=== PATIENT | male | born 2000 | race Caucasian/White ===

== ENCOUNTER 2023-07-01 10:37 | Observation (INO) ==
--- NOTE | 2023-07-01 11:43 | Emergency Department Note ---
History of Present Illness General Chief complaint: Referred by Doctor Stated complaint: Jaundice Time Seen by Provider: 07/01/23 11:03 Source: patient and family (Mother at bedside) History of Present Illness Provider complaint: Jaundice Maximum Pain Intensity: 3 23-year-old male presents emergency department for jaundice. Mother reports that for the last 2 days she noticed that the patient's eyes look more yellow. He reports pain in his abdomen. Patient mother reports they went to an outside hospital, [facility], where they did blood work. They have paperwork from his blood work which shows a total bilirubin of 6.4 and a direct bilirubin of 0.3 with liver function tests were unremarkable according to the paperwork (No direct values of the liver function tests were listed). Patient reports no recent travel. No nausea vomiting or diarrhea. No IV drug use. Patient does state he has a history of binge drinking on the weekends with friends. Patient reports no different foods or eating any restaurants. No hematuria. No excessive Tylenol or salicylate usage. Reports that the doctor at [facility] wanted him to be transferred to [facility] to have an ultrasound of his abdomen done but they decided to leave [place] and come here instead. Home Medications Medication Instructions Recorded Confirmed Type dextroamphetamine-amphetamine 10 10 mg PO .AFTERNOON PRN Other 07/01/23 07/01/23 History mg tablet dextroamphetamine-amphetamine 20 20 mg PO QAM 07/01/23 07/01/23 History mg tablet Allergies Allergy/AdvReac Type Severity Reaction Status Date / Time Penicillins Allergy Mild Unknown Unverified 06/08/22 13:29 amoxicillin AdvReac Unknown Unverified 06/08/22 13:29 Past Med/Surg History Problem List (Updated 07/01/23 @ 14:31 by Geovanny Tejeda MD) Jaundice (Acute) Panic attacks Anxiety and depression Sinusitis, acute Well adolescent visit without abnormal findings ADHD (attention deficit hyperactivity disorder), inattentive type Medical History Male circumcision No significant past medical history Surgical History No pertinent past surgical history Family History Grandfather (Paternal) Hypertension Aunt Breast cancer Grandmother (Maternal) Myocardial infarction Grandfather (Paternal) Myocardial infarction Denies family history of Ovarian cancer Prostate cancer Colorectal cancer Social History Smoking Status: Current some day smoker Tobacco Type: E-cigarettes / Vaping Second Hand Exposure: No; Do You Dip or Chew Tobacco: No; Hx Alcohol Use: Yes Alcohol Intake Frequency: Monthly or Less Hx Substance Use: Yes Preferred Language: Vietnamese marital status: Single Current Living Situation: Parent current occupational status: employed Feels Safe at Home: Yes caffeine: Yes (soda and coffee ) Dental Care, Regularly: No Physical Activity Frequency: Does not Exercise Seatbelt Use: sometimes Sunscreen Use: No Physical Exam Vital Signs Vital Signs - 24 hr 07/01/23 10:51 07/01/23 11:34 07/01/23 11:35 Temperature 36.8 C Temperature Source Temporal Artery Scan Pulse Rate 71 62 Respiratory Rate 14 Blood Pressure 153/96 H Blood Pressure Mean 115 Pulse Oximetry 98 99 Oxygen Delivery Method Room Air Room Air Sepsis New/Unexplained Change in Mental Status No Sepsis Action Taken by Nursing No Action Required Physical Exam GENERAL: He is oriented to person, place, and time. He appears well-developed and well-nourished. He does not appear distressed. HENT: Exam performed. - Head: Normocephalic and atraumatic. - Right Ear: External ear normal. No mastoid erythema - Left Ear: External ear normal. No mastoid erythema - Mouth/Throat: The oropharynx is clear and moist. No trismus in the jaw. No dental abscesses or uvula swelling. No oropharyngeal exudate or tonsillar abscesses. EYES: Conjunctivae and EOM are normal. Pupils are equal, round, and reactive to light. Right eye exhibits no discharge. Left eye exhibits no discharge. Scleral icterus bilaterally NECK: Normal range of motion. Neck supple. No JVD present. No spinous process tenderness present. No rigidity. No tracheal deviation and normal range of motion present. CV: Normal rate, regular rhythm, normal heart sounds and intact distal pulses. There is no peripheral edema. Palpable radial pulses bue. PULM/CHEST: Effort normal and breath sounds normal. No respiratory distress. No stridor. He has no wheezes. He has no rales. - Chest Wall: He exhibits no tenderness. ABD: The abdomen is soft. Bowel sounds are normal. He has no distension. No mass is present. There is no tenderness. There is no rebound, no guarding, no Callaway's sign and no tenderness at McBurney's point. Rovsig negative. MUSC/SKEL: Normal range of motion. There is no peripheral edema, tenderness or deformity. LYMPH: No cervical adenopathy. NEURO: He is alert and oriented to person, place, and time. He has normal strength. No cranial nerve deficit or sensory deficit. Coordination and gait normal. GCS eye subscore is 4. GCS verbal subscore is 5. GCS motor subscore is 6. Cerebellar tests wnl. SKIN: Skin is warm and dry. He is not diaphoretic. PSYCH: He has a normal mood and affect. Behavior is normal. Judgment and thought content normal. Course Course 1103: The patient was evaluated in room C2. A complete history and physical exam was performed Cardiac monitoring: An order was placed for continuous cardiac monitoring. The monitor shows a rate of 70 with sinus rhythm interpreted by sc 1350: Vital signs stable. Labs within normal limits with exception of total bilirubin 5.2 and direct bilirubin 0.4. EKG shows pericarditis BioFire negative. Hepatitis panel pending. Discussed case with [facility] hospitalist Dr. Meyer who states he will evaluate the patient for admission. Administered Medications Discontinued Medications Sodium Chloride (Nss) 1,000 mls @ 999 mls/hr IV .Q1H1M ONE Stop: 07/01/23 12:35 Last Infusion: 07/01/23 13:38 Dose: Infused Documented By: Admin: 07/01/23 12:37 Dose: 999 mls/hr Documented By: Medical Decision Making Laboratory Data Attestation: I reviewed the patient's lab results. 07/01/23 11:20 07/01/23 11:20 Lab Results 07/01/23 07/01/23 07/01/23 Range/Units 11:20 11:23 11:30 WBC 8.82 (4.8-10.8) K/ul RBC 5.15 (4.70-6.10) M/uL Hgb 15.4 (14.0-18.0) g/dl Hct 43.3 (42.0-52.0) % MCV 84.1 (80.0-100.0) fL MCH 29.9 (25.0-34.0) pg MCHC 35.6 (32.0-36.0) g/dL RDW Std Deviation 37.8 (36.4-46.3) fL RDW Coeff of Manny 12.4 (11.5-14.5) % Plt Count 339 (130-400) K/uL MPV 9.1 L (9.4-12.4) fL Immature Gran % (Auto) 0.3 % Neut % (Auto) 64.0 % Lymph % (Auto) 21.3 % Glynn % (Auto) 12.4 % Eos % (Auto) 1.0 % Baso % (Auto) 1.0 % Neut # (Auto) 5.64 (1.40-6.50) K/uL Lymph # (Auto) 1.88 (1.20-3.40) K/uL Glynn # (Auto) 1.09 H (0.11-0.59) K/uL Eos # (Auto) 0.09 (0.00-0.50) K/uL Baso # (Auto) 0.09 (0.00-0.20) K/uL Immature Gran # (Auto) 0.03 (0.01-0.20) K/uL PT 12.0 (9.0-12.0) Seconds INR 1.1 (0.9-1.1) APTT 28 (21-31) Seconds PTT Ratio 1.0 Sodium 138 (136-145) mmol/L Potassium 3.4 L (3.5-5.1) mmol/L Chloride 102 (98-107) mmol/L Carbon Dioxide 27 (21-32) mmol/L Anion Gap 9 (3-11) BUN 9 (6-23) mg/dl Creatinine 1.00 (0.6-1.4) mg/dl Est Cr Clr Drug Dosing 98.5 ml/min Est GFR ( Amer) 122.4 ml/min Est GFR (Non-Af Amer) 105.6 ml/min BUN/Creatinine Ratio 9.0 L (10-20) Glucose 92 (70-99(Fasting)) mg/dl Calcium 9.7 (8.6-10.3) mg/dl Total Bilirubin 5.2 H (0.2-1.0) mg/dl Direct Bilirubin 0.4 H (0-0.2) mg/dl AST 15 (13-39) U/L ALT 11 (7-52) U/L Alkaline Phosphatase 37 (34-104) U/L Ammonia 28.0 (18-72) umol/L Troponin I High Sens (0-20) pg/ml Total Protein 7.4 (6.0-8.3) gm/dl Albumin 4.9 (3.4-5.0) gm/dl Lipase 14 (11-82) U/L Urine Color [place] Urine Appearance Cloudy A (Clear) Urine pH 5.5 (4.5-7.5) Ur Specific [place] 1.034 H (1.000-1.030) Urine Protein 1+ H (Negative) Urine Glucose (UA) Negative (Negative) Urine Ketones 2+ H (Negative) Urine Blood Negative (Negative) Urine Nitrite Positive A (Negative) Urine Bilirubin 2+ H (Negative) Urine Urobilinogen Negative (Negative) Ur Leukocyte Esterase Trace H (Negative) Urine WBC (Auto) 0-5 (0-5) /hpf Urine RBC (Auto) 0-2 (0-2) /hpf U Hyaline Cast (Auto) 3-5 H (0-2) /lpf U Epithel Cells (Auto) 0-2 (0-2) /hpf Urine Bacteria (Auto) None Seen (None Seen) Urine Mucus Present A (None Prsent) Salicylates < 3.0 L (3.0-30) mg/dl Urine Opiates Screen Neg (Neg) Ur Methadone, Qual Neg (Neg) Acetaminophen < 3 L (10-30) ug/ml Urine Barbiturates Neg (Neg) Ur Phencyclidine (PCP) Neg (Neg) U Amphetamin/Meth Scrn Pos H (Neg) MDMA (Ecstasy) Screen Pos H (Neg) U Benzodiazepines Scrn Pos H (Neg) Ur Cocaine Metabolite Neg (Neg) U Marijuana (THC) Screen Neg (Neg) Ethyl Alcohol mg/dL (<10.0) mg/dl Adenovirus (PCR) (NotDetected) B. pertussis DNA (PCR) (NotDetected) B.parapertussis DNA PCR (NotDetected) C. pneumoniae DNA (PCR) (NotDetected) Coronavirus OC43 (PCR) (NotDetected) Coronavirus HKU1 (PCR) (NotDetected) Coronavirus 229E (PCR) (NotDetected) SARS-CoV-2 (PCR) (NotDetected) Coronavirus NL63 (PCR) (NotDetected) Human Metapneumovir PCR (NotDetected) Influenza Type A (PCR) (NotDetected) Influenza Type B (PCR) (NotDetected) M. pneumoniae (PCR) (NotDetected) Parainfluenza 1 (PCR) (NotDetected) Parainfluenza 2 (PCR) (NotDetected) Parainfluenza 3 (PCR) (NotDetected) Parainfluenza 4 (PCR) (NotDetected) RSV (PCR) (NotDetected) Entero/Rhino (PCR) (NotDetected) 07/01/23 07/01/23 Range/Units 12:13 12:35 WBC (4.8-10.8) K/ul RBC (4.70-6.10) M/uL Hgb (14.0-18.0) g/dl Hct (42.0-52.0) % MCV (80.0-100.0) fL MCH (25.0-34.0) pg MCHC (32.0-36.0) g/dL RDW Std Deviation (36.4-46.3) fL RDW Coeff of Manny (11.5-14.5) % Plt Count (130-400) K/uL MPV (9.4-12.4) fL Immature Gran % (Auto) % Neut % (Auto) % Lymph % (Auto) % Glynn % (Auto) % Eos % (Auto) % Baso % (Auto) % Neut # (Auto) (1.40-6.50) K/uL Lymph # (Auto) (1.20-3.40) K/uL Glynn # (Auto) (0.11-0.59) K/uL Eos # (Auto) (0.00-0.50) K/uL Baso # (Auto) (0.00-0.20) K/uL Immature Gran # (Auto) (0.01-0.20) K/uL PT (9.0-12.0) Seconds INR (0.9-1.1) APTT (21-31) Seconds PTT Ratio Sodium (136-145) mmol/L Potassium (3.5-5.1) mmol/L Chloride (98-107) mmol/L Carbon Dioxide (21-32) mmol/L Anion Gap (3-11) BUN (6-23) mg/dl Creatinine (0.6-1.4) mg/dl Est Cr Clr Drug Dosing ml/min Est GFR ( Amer) ml/min Est GFR (Non-Af Amer) ml/min BUN/Creatinine Ratio (10-20) Glucose (70-99(Fasting)) mg/dl Calcium (8.6-10.3) mg/dl Total Bilirubin (0.2-1.0) mg/dl Direct Bilirubin (0-0.2) mg/dl AST (13-39) U/L ALT (7-52) U/L Alkaline Phosphatase (34-104) U/L Ammonia (18-72) umol/L Troponin I High Sens 5.4 (0-20) pg/ml Total Protein (6.0-8.3) gm/dl Albumin (3.4-5.0) gm/dl Lipase (11-82) U/L Urine Color Urine Appearance (Clear) Urine pH (4.5-7.5) Ur Specific [place] (1.000-1.030) Urine Protein (Negative) Urine Glucose (UA) (Negative) Urine Ketones (Negative) Urine Blood (Negative) Urine Nitrite (Negative) Urine Bilirubin (Negative) Urine Urobilinogen (Negative) Ur Leukocyte Esterase (Negative) Urine WBC (Auto) (0-5) /hpf Urine RBC (Auto) (0-2) /hpf U Hyaline Cast (Auto) (0-2) /lpf U Epithel Cells (Auto) (0-2) /hpf Urine Bacteria (Auto) (None Seen) Urine Mucus (None Prsent) Salicylates (3.0-30) mg/dl Urine Opiates Screen (Neg) Ur Methadone, Qual (Neg) Acetaminophen (10-30) ug/ml Urine Barbiturates (Neg) Ur Phencyclidine (PCP) (Neg) U Amphetamin/Meth Scrn (Neg) MDMA (Ecstasy) Screen (Neg) U Benzodiazepines Scrn (Neg) Ur Cocaine Metabolite (Neg) U Marijuana (THC) Screen (Neg) Ethyl Alcohol mg/dL < 10.0 (<10.0) mg/dl Adenovirus (PCR) Not Detected (NotDetected) B. pertussis DNA (PCR) Not Detected (NotDetected) B.parapertussis DNA PCR Not Detected (NotDetected) C. pneumoniae DNA (PCR) Not Detected (NotDetected) Coronavirus OC43 (PCR) Not Detected (NotDetected) Coronavirus HKU1 (PCR) Not Detected (NotDetected) Coronavirus 229E (PCR) Not Detected (NotDetected) SARS-CoV-2 (PCR) Not Detected (NotDetected) Coronavirus NL63 (PCR) Not Detected (NotDetected) Human Metapneumovir PCR Not Detected (NotDetected) Influenza Type A (PCR) Not Detected (NotDetected) Influenza Type B (PCR) Not Detected (NotDetected) M. pneumoniae (PCR) Not Detected (NotDetected) Parainfluenza 1 (PCR) Not Detected (NotDetected) Parainfluenza 2 (PCR) Not Detected (NotDetected) Parainfluenza 3 (PCR) Not Detected (NotDetected) Parainfluenza 4 (PCR) Not Detected (NotDetected) RSV (PCR) Not Detected (NotDetected) Entero/Rhino (PCR) Not Detected (NotDetected) Imaging Data Attestation: I personally reviewed and interpreted this imaging study as follows: My Impression: Acute abdominal series: Chest x-ray negative. Airway clear. No pneumothorax. No consolidation. No cardiomegaly or cephalization.. No free air under the diaphragm. No fractures of the skeletal structures. No air-fluid levels nonspecific bowel gas pattern. Radiologist's Impression: Chest/Abdomen X-ray 07/01/23 11:13 XR abdomen 2V w PA chest CLINICAL HISTORY: epigastric pain TECHNIQUE: 2 views of the abdomen were obtained. A single view of the chest was obtained. Comparison: Comparison is made to chest radiograph 01/08/2018 FINDINGS: No lines and tubes are seen. The cardiomediastinal silhouette is normal. The lungs are clear. No evidence of pleural effusion or pneumothorax. The osseous structures are grossly unremarkable. The bowel gas pattern is nonobstructive. Small stool burden is seen. IMPRESSION: Nonobstructive bowel gas pattern. ACT 112: Negative or not required by law. Electronically signed by: Nick Ramachandran M.D. 07/01/2023 12:49 PM Gallbladder Ultrasound 07/01/23 11:13 ABDOMINAL ULTRASOUND, RIGHT UPPER QUADRANT HISTORY: Acute right upper quadrant abdominal pain jaundice epigastric pain. COMPARISON: CT 02/15/2011 FINDINGS: Pancreas: The pancreas is mostly obscured by bowel gas. Liver: Unremarkable. Gallbladder: No gallbladder wall thickening. No gallstones. CBD: 0.3 cm. Right kidney: No hydronephrosis. IMPRESSION: No significant abnormality identified within the right upper quadrant. ACT 112: Negative or not required by law. Electronically signed by: Patrick An M.D. 07/01/2023 12:29 PM ECG Data Attestation: I personally reviewed and interpreted this ECG as follows: Additional Comments: Sinus rhythm with a rate of 69. SD QRS and QTc intervals are within normal limits. SD depression with concave ST elevation no convex ST elevation. Findings are consistent with pericarditis. No STEMI. [facility] Narrative 1103: The patient was evaluated in room C2. A complete history and physical exam was performed Cardiac monitoring: An order was placed for continuous cardiac monitoring. The monitor shows a rate of 70 with sinus rhythm interpreted by me 1350: Vital signs stable. Labs within normal limits with exception of total bilirubin 5.2 and direct bilirubin 0.4. EKG shows pericarditis BioFire negative. Hepatitis panel pending. Discussed case with [facility] hospitalist Dr. Meyer who states he will evaluate the patient for admission. Impression & Plan Jaundice Discharge Plan Visit Data Chief Complaint: Referred by Doctor Stated Complaint: Jaundice ED Provider: Geovanny Tejeda Discharge Problem: Jaundice Patient Disposition: Admitted As Inpatient Forms Stand Alone Forms: My [facility] Prescriptions Prescriptions: No Action dextroamphetamine-amphetamine 10 mg tablet 10 mg PO .AFTERNOON PRN (Reason: Other) dextroamphetamine-amphetamine 20 mg tablet 20 mg PO QAM Referrals Referrals: Torito Rockwell DO [Primary Care Provider] -
[2023-07-01 11:45] LABS: Basophils # (auto) 0.09 K/uL (0.00-0.20); Eosinophils # (auto) 0.09 K/uL (0.00-0.50); Hematocrit (blood only) 43.3 % (42.0-52.0); Hemoglobin 15.4 g/dl (14.0-18.0); Immature Granulocytes # (auto) 0.03 K/uL (0.01-0.20); Immature Granulocytes % (auto) 0.3 %; Lymphocytes # (auto) 1.88 K/uL (1.20-3.40); Lymphocytes % (auto) 21.3 %; Mean Corpuscular Hemoglobin 29.9 pg (25.0-34.0); Mean Corpuscular Hgb Conc 35.6 g/dL (32.0-36.0); Mean Corpuscular Volume 84.1 fL (80.0-100.0); Mean Platelet Volume 9.1 fL (9.4-12.4); Monocytes # (auto) 1.09 K/uL (0.11-0.59); Monocytes % (auto) 12.4 %; Neutrophils # (auto) 5.64 K/uL (1.40-6.50); Platelet Count 339 K/uL (130-400); RDW Coefficient of Variation 12.4 % (11.5-14.5); RDW Standard Deviation 37.8 fL (36.4-46.3); Red Blood Count 5.15 M/uL (4.70-6.10); White Blood Count 8.82 K/ul (4.8-10.8)
[2023-07-01 11:53] LABS: Appearance Urine Cloudy (Clear); Bacteria Urine Automated None Seen (None Seen); Bilirubin Urine 2+ (Negative); Blood Urine Negative (Negative); Color Urine Orange; Epithelial Cell Urine Auto 0-2 /hpf (0-2); Glucose Urine UA Negative (Negative); Ketones Urine 2+ (Negative); Leukocyte Esterase Urine Trace (Negative); Mucus Urine Present (None Prsent); Nitrite Urine Positive (Negative); Protein Urine 1+ (Negative); RBC Urine Automated 0-2 /hpf (0-2); Specific Gravity Urine 1.034 (1.000-1.030); Urobilinogen Urine Negative (Negative); WBC Urine Automated 0-5 /hpf (0-5); pH Urine 5.5 (4.5-7.5)
[2023-07-01 11:59] LABS: Albumin Level 4.9 gm/dl (3.4-5.0); Bilirubin Direct 0.4 mg/dl (0-0.2); Bilirubin,Total 5.2 mg/dl (0.2-1.0); Calcium 9.7 mg/dl (8.6-10.3); Creatinine Clr Calc Pharmacy 98.5 ml/min; Est GFR (African American) 122.4 ml/min; Est GFR (Non-African American) 105.6 ml/min; Potassium 3.4 mmol/L (3.5-5.1); Total Protein 7.4 gm/dl (6.0-8.3)
[2023-07-01 12:05] LABS: Acetaminophen < 3 ug/ml (10-30); Salicylate < 3.0 mg/dl (3.0-30)
--- NOTE | 2023-07-01 12:30 | Ultrasound Report ---
ABDOMINAL ULTRASOUND, RIGHT UPPER QUADRANT HISTORY: Acute right upper quadrant abdominal pain jaundice epigastric pain. COMPARISON: CT 02/15/2011 FINDINGS: Pancreas: The pancreas is mostly obscured by bowel gas. Liver: Unremarkable. Gallbladder: No gallbladder wall thickening. No gallstones. CBD: 0.3 cm. Right kidney: No hydronephrosis. IMPRESSION: No significant abnormality identified within the right upper quadrant. ACT 112: Negative or not required by law. Electronically signed by: Patrick An M.D. 07/01/2023 12:29 PM
[2023-07-01 12:36] LABS: INR 1.1 (0.9-1.1); Partial Thromboplastin Time 28 Seconds (21-31)
[2023-07-01] MEDS: SODIUM CHLORIDE 0.9% 1,000 ML IV ONE (12:37)
--- NOTE | 2023-07-01 12:51 | XRay Report ---
XR abdomen 2V w PA chest CLINICAL HISTORY: epigastric pain TECHNIQUE: 2 views of the abdomen were obtained. A single view of the chest was obtained. Comparison: Comparison is made to chest radiograph 01/08/2018 FINDINGS: No lines and tubes are seen. The cardiomediastinal silhouette is normal. The lungs are clear. No evid ence of pleural effusion or pneumothorax. The osseous structures are grossly unremarkable. The bowel gas pattern is nonobstructive. Small stool burden is seen. IMPRESSION: Nonobstructive bowel gas pattern. ACT 112: Negative or not required by law. Electronically signed by: Nick Ramachandran M.D. 07/01/2023 12:49 PM
[2023-07-01 12:52] LABS: Amphetamines+Metham, Urine Pos (Neg); Barbiturates, Urine Neg (Neg); Benzodiazepine, Urine Pos (Neg); Cocaine, Urine Neg (Neg); MDMA (Ecstacy), Urine Pos (Neg); Marijuana, Urine Neg (Neg); Methadone, Urine Neg (Neg); Opiate, Urine Neg (Neg); Phencyclidine, Urine Neg (Neg)
[2023-07-01 13:37] LABS: Adenovirus PCR Not Detected (NotDetected); Bordetella parapertussis PCR Not Detected (NotDetected); Bordetella pertussis PCR Not Detected (NotDetected); Chlamydia pneumoniae PCR Not Detected (NotDetected); Coronavirus 229E PCR Not Detected (NotDetected); Coronavirus CoV-2 (COVID19)PCR Not Detected (NotDetected); Coronavirus HKU1 PCR Not Detected (NotDetected); Coronavirus NL63 PCR Not Detected (NotDetected); Coronavirus OC43PCR Not Detected (NotDetected); Human Metapneumovirus PCR Not Detected (NotDetected); Influenza A PCR Not Detected (NotDetected); Influenza B PCR Not Detected (NotDetected); Mycoplasma pneumoniae PCR Not Detected (NotDetected); Parainfluenza Virus 1 PCR Not Detected (NotDetected); Parainfluenza Virus 2 PCR Not Detected (NotDetected); Parainfluenza Virus 3 PCR Not Detected (NotDetected); Parainfluenza Virus 4 PCR Not Detected (NotDetected); Respiratory Syncytial VirusPCR Not Detected (NotDetected); Rhinovirus/Enterovirus PCR Not Detected (NotDetected)
--- NOTE | 2023-07-01 13:48 | History & Physical Report ---
Date of Service July 01, 2023 Assessment & Plan (1) Jaundice: Plan: Unconjugated hyperbilirubinemia Patient had a history of prolonged jaundice as a child, has multiple family members with issues from jaundice of varying provoking factors. 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 His bilirubin level is much higher at this time however it is greater than 4. He has had associated hematuria, and has had some diarrhea/constipation. Will expand workup to include hemolysis and infectious causes of worsened hyperbilirubinemia. Can consider UGT1A1 genetic testing although unlikely to manager of change/course Patient has a decrease in his hemoglobin from prior measurements; however still remains within the upper limits of normal at 15.4. Hemolysis labs including smear, LDH, and Denzel are pending. Patient is a young male, does not have a family history of G6PD deficiency or autoimmune disease No transaminitis. There is not a cholestatic/obstructive pattern. Ultrasound is with an unremarkable gallbladder and liver appearance and no signs of obstruction Patient does endorse right lower quadrant abdominal discomfort, diarrhea /constipation, and urine output which is not just dark orange, but bloody in appearance. UA and CTA/P pending. Stool bio fire added. Patient is not thrombocytopenic Hepatitis panel ordered while patient was in ER No recent alcohol use. No APAP use. -Patient has been on Adderall which was dose adjusted 1 month ago, otherwise no recent medication changes TSH pending. Denies history of steroid use. No recent antibiotics/antiviral use. No evidence of cirrhosis. Low suspicion for Jorge L's as patient does not have a transaminitis, has no cirrhotic findings, and has no acute neurologic symptoms (2) EKG, abnormal: Plan: EKG abnormalities ? Early repolarization most notable in 2/3/aVF/far lateral leads without chest pain or an elevated troponin. Patient does endorse some chest discomfort/shortness of breath intermittently. Will obtain echo to rule out pericarditis/restrictive disease although low overall suspicion for this Patient denies chest pain, has noticed a little more intermittent shortness of breath. No hypotension or tachycardia Echo ordered. 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 bubble study included. (3) Abdominal pain: Plan: No leukocytosis. Has had alternating diarrhea/constipation CTA/P pending (4) Panic attacks: Plan: Reasonably well-controlled with home medications. Patient denies increased anxiety on admission. No SI on admission. Home medications continue (5) ADHD (attention deficit hyperactivity disorder), inattentive type: Plan: Adderall temporarily held (6) Hematuria: Plan: No thrombocytopenia. May be dark from hyperbilirubinemia UA added No dysuria Plan Chronic stable issues: Sexually active: Patient requests routine STD screening. HIV/G/C ordered DVT prophylaxis: SCDs, full code prophylaxis held pending hemolysis evaluation Disposition: Medical/surgical CODE STATUS: Full code Diet: Regular History of Present Illness Primary Care Provider: Torito Rockwell DO Kole is a 23-year-old male Noticed his eyes were yellow yesterday. Was seen at [facility] yesterday and had a high bilirubin level. Was awaiting transfer to [place] as ultrasound was not available; however, transfer was delayed. As it took several hours with no update, signed out AMA and came to [facility] this morning for further care. Jeremías reports he did have bilirubin checked a year or two ago. After a breakup had an episode of binge drinking for ~1-2 months. Did have a slightly high level, but not that hig No recent illnesses in the last month Did have binge dinrking 2 years ago around 2years ago. Recently has only been drinking about once every 2 weeks, has 7-8 in a sitting when he does drink but has only had alcohol twice a month but hasn't gone out htis past so hasn't drank in around 1-2 months No medication changes. Has been on clonopin 0.5mg BID, adderal 20mg AM, 10mg PM, propanolol 10mg PRN for shakes is he is trying to not take the clonopin and for agoraphobia, and trazodone 50mg HS PRN. DId take clonopin and propanolol this AM. Adderal was increased from 10/10 to 20/10 about one month ago. Had been on 30mg BID twice daily in the past. No tylenol use No recent antibiotic use Urine has been very dark/red. No bleeding Hasa bruise on his L lateral thigh which he noticed one week ago. Bowel movements last few weeks changed. Has alternated constipation and diarrhea. He has abdominal pain every night, and chugs a large amount of water which is the only thing that seems to help. +polyuria with water, no dysuria. No bloody or black bowel movements. BMs have been 'much darker brown, not black but also not regular brown'. No marroon or black BMs. NO hx stds, but would like routine testing As a child has issues with jaundice, 'hole in his heart which slowly closed over a year.' Was at [facility] [place] but needed extended phototherapy. Does have a family history of jaundice in childhood in family members that patients mother thinks was due to hepatisis, also with an uncle that turned yellow but not sure why, and two cousins had severe jaundice. U-Tox: Amphetamine/meth screen positive in the setting of prescribed Adderall. MDMA and urine benzo screen positive. No leukocytosis Although last for comparison was 16.7 2018 had a bili of 2.0 with no transaminitis. Hyperbilirubinemia 5.2, Direct 0.4. LastBilirubin was checked in 2018, at that time was elevated 2.0 with no direct/indirect measurement available Allergies Allergy/AdvReac Type Severity Reaction Status Date / Time Penicillins Allergy Mild Unknown Unverified 06/08/22 13:29 amoxicillin AdvReac Unknown Unverified 06/08/22 13:29 Home Medications Medication Instructions Recorded Confirmed Type clonazepam 0.5 mg tablet 0.5 mg PO BID PRN Other 07/01/23 07/01/23 History dextroamphetamine-amphetamine 10 10 mg PO .AFTERNOON PRN Other 07/01/23 07/01/23 History mg tablet dextroamphetamine-amphetamine 20 20 mg PO QAM 07/01/23 07/01/23 History mg tablet hydroxyzine HCl 25 mg tablet 25 mg PO BID PRN Other 07/01/23 07/01/23 History propranolol 10 mg tablet 10 mg PO BID 07/01/23 07/01/23 History trazodone 50 mg tablet 50 mg PO HS PRN Sleep 07/01/23 07/01/23 History Past Med/Surg History Problem List (Updated 07/01/23 @ 15:00 by Fede Meyer MD) EKG, abnormal Hematuria Abdominal pain Jaundice (Acute) Panic attacks Anxiety and depression Sinusitis, acute Well adolescent visit without abnormal findings ADHD (attention deficit hyperactivity disorder), inattentive type Medical History Male circumcision No significant past medical history Surgical History No pertinent past surgical history Family History Grandfather (Paternal) Hypertension Aunt Breast cancer Grandmother (Maternal) Myocardial infarction Grandfather (Paternal) Myocardial infarction Denies family history of Ovarian cancer Prostate cancer Colorectal cancer Social History Smoking Status: Current some day smoker Tobacco Type: E-cigarettes / Vaping Second Hand Exposure: No; Do You Dip or Chew Tobacco: No; Hx Alcohol Use: Yes Alcohol Intake Frequency: Monthly or Less Hx Substance Use: Yes Preferred Language: German marital status: Single Current Living Situation: Parent current occupational status: employed Feels Safe at Home: Yes caffeine: Yes (soda and coffee ) Dental Care, Regularly: No Physical Activity Frequency: Does not Exercise Seatbelt Use: sometimes Sunscreen Use: No Physical Exam Physical Exam: General: A&Ox3. NAD. Cooperative. HEENT: Atraumatic, normocephalic. Scleral icterus is present. Vision and hearing are grossly intact Pulm: CTAB A&P. -wheezes, -rales, -rhonchi. Symmetrical chest rise. No increased work of breathing. No respiratory distress. Cardiac: RRR, -mrg. Radial pulses intact and symmetrical. Abdominal: Tender to palpation of the right lower quadrant without rebound/guarding. Mild jaundice appreciated Extremities: Bruise present on right inner leg, no hematoma Results & Data Results & Data Vital Signs (Past 12 Hours) Vital Signs Temp Pulse Resp BP Pulse Ox O2 Del Method 07/01/23 11:35 62 07/01/23 11:34 99 Room Air 07/01/23 10:51 36.8 C 71 14 153/96 H 98 Room Air PG Care Time/CCT Total # of Minutes Spent Total Time Spent with Patient: Total time spent is greater than 50% in coordination of care (as documented) at patient's floor/unit and/or counseling patient: Coding Level of Care Code 74776 INT INP/OBS CARE 2/55MIN Diagnoses Jaundice R17 EKG, abnormal R94.31 Abdominal pain R10.9 Panic attacks F41.0 ADHD (attention deficit hyperactivity disorder), inattentive type F90.0 Hematuria R31.9
[2023-07-01] MEDS ORDERED: MAGNESIUM HYDROXIDE SUSP 30 ML UDC PO PRN (14:29)
[2023-07-01 15:25] LABS: Thyroid Stimulating Hormone 0.466 uIu/ml (0.300-4.500)
[2023-07-01] MEDS: OPTIRAY 320 100ml IV ONE (15:38)
--- NOTE | 2023-07-01 16:01 | CT Scan Report ---
ABDOMEN AND PELVIS CT WITH IV CONTRAST CT DOSE: 451.19 mGy.cm HISTORY: Acute generalized abdominal pain abdominal pain, GI illness TECHNIQUE: Multiaxial CT images of the abdomen and pelvis were performed following the IV administrat ion of 92 cc of Optiray, A dose lowering technique was utilized adhering to the principles of ALARA. COMPARISON STUDY: 02/15/2011 FINDINGS: Clear lung bases. No free air. The study is mildly degraded by respiratory motion artifact. Unremarkable spleen, pancreas, gallbladder and adrenal glands. Liver is within normal limits. Patenc y of the hepatic and portal veins. Kidneys are within normal limits. No hydronephrosis. While nonspec ific urinary bladder wall thickening. Heterogeneous appearance of the prostate and seminal vesicles i s nonspecific. Trace free pelvic fluid. Aorta and IVC are unremarkable. No lymphadenopathy. Subcentim eter PA calcifications noted on image 341 series 3. There is no bowel obstruction or bowel wall thickening. Normal appendix. Unremarkable soft tissues. M ild lumbar levoscoliosis. No acute fracture. IMPRESSION: 1. No bowel obstruction or bowel wall thickening. 2. Normal appendix. 3. Trace nonspecific free pelvic fluid. ACT 112: Negative or not required by law. The above report was generated using voice recognition software. It may contain grammatical, syntax o r spelling errors. Electronically signed by: Patrick An M.D. 07/01/2023 4:00 PM
--- NOTE | 2023-07-01 17:13 | XCELERA ---
[id number]
[2023-07-01] MEDS ORDERED: hydrOXYzine HCl 25 MG TAB PO PRN (18:56)
[2023-07-01] MEDS: clonazePAM 0.5 MG TAB PO PRN (21:30)
[2023-07-01] MEDS: traZODone HCL 50 MG TAB PO PRN (21:30)
[2023-07-01] MEDS: PROPRANOLOL HCL 10 MG TAB PO SCH (21:30)
[2023-07-01 21:56] LABS: Appearance Urine Clear (Clear); Bilirubin Urine Negative (Negative); Blood Urine Negative (Negative); Color Urine Yellow; Glucose Urine UA Negative (Negative); Ketones Urine 3+ (Negative); Leukocyte Esterase Urine Negative (Negative); Nitrite Urine Negative (Negative); Protein Urine Negative (Negative); Specific Gravity Urine 1.029 (1.000-1.030); Urobilinogen Urine Negative (Negative)
[2023-07-02 06:50] LABS: Basophils # (auto) 0.07 K/uL (0.00-0.20); Basophils % (auto) 1.1 %; Eosinophils # (auto) 0.17 K/uL (0.00-0.50); Eosinophils % (auto) 2.7 %; Hematocrit (blood only) 41.3 % (42.0-52.0); Hemoglobin 14.8 g/dl (14.0-18.0); Immature Granulocytes # (auto) 0.01 K/uL (0.01-0.20); Immature Granulocytes % (auto) 0.2 %; Lymphocytes # (auto) 2.09 K/uL (1.20-3.40); Lymphocytes % (auto) 32.8 %; Mean Corpuscular Hemoglobin 29.9 pg (25.0-34.0); Mean Corpuscular Hgb Conc 35.8 g/dL (32.0-36.0); Mean Corpuscular Volume 83.4 fL (80.0-100.0); Monocytes # (auto) 0.75 K/uL (0.11-0.59); Monocytes % (auto) 11.8 %; Neutrophils # (auto) 3.28 K/uL (1.40-6.50); Neutrophils % (auto) 51.4 %; Platelet Count 291 K/uL (130-400); RDW Coefficient of Variation 12.5 % (11.5-14.5); RDW Standard Deviation 37.5 fL (36.4-46.3); Red Blood Count 4.95 M/uL (4.70-6.10); White Blood Count 6.37 K/ul (4.8-10.8)
[2023-07-02 07:09] LABS: Albumin Level 4.6 gm/dl (3.4-5.0); BUN Creatinine Ratio 8.3 (10-20); Bilirubin,Total 5.5 mg/dl (0.2-1.0); Calcium 9.5 mg/dl (8.6-10.3); Creatinine Clr Calc Pharmacy 117.2 ml/min; Est GFR (Non-African American) 123.4 ml/min; Globulin 2.3 gm/dl (2.5-4.0); Potassium 3.7 mmol/L (3.5-5.1); Total Protein 6.9 gm/dl (6.0-8.3)
--- NOTE | 2023-07-02 07:48 | Hospitalist Progress Note ---
Date of Service July 02, 2023 Assessment & Plan (1) Jaundice: Plan: Unconjugated hyperbilirubinemia Patient had a history of prolonged jaundice as a child, has multiple family members with issues from jaundice of varying provoking factors. 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 His bilirubin level is much higher at this time however it is greater than 4. He has had associated hematuria, and has had some diarrhea/constipation. Will expand workup to include hemolysis and infectious causes of worsened hyperbilirubinemia. Can consider [id number] genetic testing although unlikely to cell changer/course Patient has a decrease in his hemoglobin from prior measurements; however still remains within the upper limits of normal at 15.4. Hemolysis labs including smear, LDH, and Denzel are pending. Patient is a young male, does not have a family history of G6PD deficiency or autoimmune disease No transaminitis. There is not a cholestatic/obstructive pattern. Ultrasound is with an unremarkable gallbladder and liver appearance and no signs of obstruction Patient does endorse right lower quadrant abdominal discomfort, di arrhea/constipation, and urine output which is not just dark orange, but bloody in appearance. UA and CTA/P pending. Stool bio fire added. Patient is not thrombocytopenic Hepatitis panel ordered while patient was in ER No recent alcohol use. No APAP use. -Patient has been on Adderall which was dose adjusted 1 month ago, otherwise no recent medication changes TSH pending. Denies history of steroid use. No recent antibiotics/antiviral use. No evidence of cirrhosis. Low suspicion for Jorge L's as patient does not have a transaminitis, has no cirrhotic findings, and has no acute neurologic symptoms (2) EKG, abnormal: Plan: EKG abnormalities ? Early repolarization most notable in 2/3/aVF/far lateral leads without chest pain or an elevated troponin. Patient does endorse some chest discomfort/shortness of breath intermittently. Will obtain echo to rule out pericarditis/restrictive disease although low overall suspicion for this Patient denies chest pain, has noticed a little more intermittent shortness of breath. No hypotension or tachycardia Echo ordered. 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 bubble study included. (3) Abdominal pain: Plan: No leukocytosis. Has had alternating diarrhea/constipation CTA/P pending (4) Panic attacks: Plan: Reasonably well-controlled with home medications. Patient denies increased anxiety on admission. No SI on admission. Home medications continue (5) ADHD (attention deficit hyperactivity disorder), inattentive type: Plan: Adderall temporarily held (6) Hematuria: Plan: No thrombocytopenia. May be dark from hyperbilirubinemia UA added No dysuria Plan Chronic stable issues: Sexually active: Patient requests routine STD screening. HIV/G/C ordered DVT prophylaxis: SCDs, full code prophylaxis held pending hemolysis evaluation Disposition: Medical/surgical CODE STATUS: Full code Diet: Regular Admission and Anticipated Discharge Date Admission Date: July 01, 2023 Review of Systems Review of Systems: All systems reviewed & are unremarkable except as noted in HPI & below Physical Exam Physical Exam: General: A&Ox3. NAD. Cooperative. HEENT: Atraumatic, normocephalic. Scleral icterus is present. Vision and hearing are grossly intact Pulm: CTAB A&P. -wheezes, -rales, -rhonchi. Symmetrical chest rise. No increased work of breathing. No respiratory distress. Cardiac: RRR, -mrg. Radial pulses intact and symmetrical. Abdominal: Tender to palpation of the right lower quadrant without rebound/guarding. Mild jaundice appreciated Extremities: Bruise present on right inner leg, no hematoma Results & Data Results & Data Vital Signs (Past 12 Hours) Vital Signs Temp Pulse Resp BP Pulse Ox O2 Del Method 07/02/23 07:04 36.5 C 63 16 105/65 97 Room Air Laboratory Results 07/02/23 07/01/23 07/01/23 Range/Units 06:24 21:51 21:50 WBC 6.37 (4.8-10.8) K/ul RBC 4.95 (4.70-6.10) M/uL Hgb 14.8 (14.0-18.0) g/dl Hct 41.3 L (42.0-52.0) % MCV 83.4 (80.0-100.0) fL MCH 29.9 (25.0-34.0) pg MCHC 35.8 (32.0-36.0) g/dL RDW Std Deviation 37.5 (36.4-46.3) fL RDW Coeff of Manny 12.5 (11.5-14.5) % Plt Count 291 (130-400) K/uL MPV 9.0 L (9.4-12.4) fL Immature Gran % (Auto) 0.2 % Neut % (Auto) 51.4 % Lymph % (Auto) 32.8 % [place] % (Auto) 11.8 % Eos % (Auto) 2.7 % Baso % (Auto) 1.1 % Neut # (Auto) 3.28 (1.40-6.50) K/uL Lymph # (Auto) 2.09 (1.20-3.40) K/uL [place] # (Auto) 0.75 H (0.11-0.59) K/uL Eos # (Auto) 0.17 (0.00-0.50) K/uL Baso # (Auto) 0.07 (0.00-0.20) K/uL Immature Gran # (Auto) 0.01 (0.01-0.20) K/uL Peripher Smr Path Cons PT (9.0-12.0) Seconds INR (0.9-1.1) APTT (21-31) Seconds PTT Ratio Sodium 137 (136-145) mmol/L Potassium 3.7 (3.5-5.1) mmol/L Chloride 101 (98-107) mmol/L Carbon Dioxide 25 (21-32) mmol/L Anion Gap 11 (3-11) BUN 7 (6-23) mg/dl Creatinine 0.84 (0.6-1.4) mg/dl Est Cr Clr Drug Dosing 117.2 ml/min Est GFR ( Amer) 143.0 ml/min Est GFR (Non-Af Amer) 123.4 ml/min BUN/Creatinine Ratio 8.3 L (10-20) Glucose 76 (70-99(Fasting)) mg/dl Calcium 9.5 (8.6-10.3) mg/dl Total Bilirubin 5.5 H (0.2-1.0) mg/dl Direct Bilirubin (0-0.2) mg/dl AST 12 L (13-39) U/L ALT 9 (7-52) U/L Alkaline Phosphatase 35 (34-104) U/L Ammonia (18-72) umol/L Lactate Dehydrogenase (86-244) U/L Troponin I High Sens (0-20) pg/ml Total Protein 6.9 (6.0-8.3) gm/dl Albumin 4.6 (3.4-5.0) gm/dl Globulin 2.3 L (2.5-4.0) gm/dl Albumin/Globulin Ratio 2.0 (0.9-2) Lipase (11-82) U/L TSH (0.300-4.500) uIu/ml Urine Color Yellow Urine Appearance Clear (Clear) Urine pH 7.0 (4.5-7.5) Ur Specific Wever 1.029 (1.000-1.030) Urine Protein Negative (Negative) Urine Glucose (UA) Negative (Negative) Urine Ketones 3+ H (Negative) Urine Blood Negative (Negative) Urine Nitrite Negative (Negative) Urine Bilirubin Negative (Negative) Urine Urobilinogen Negative (Negative) Ur Leukocyte Esterase Negative (Negative) Urine WBC (Auto) (0-5) /hpf Urine RBC (Auto) (0-2) /hpf U Hyaline Cast (Auto) (0-2) /lpf U Epithel Cells (Auto) (0-2) /hpf Urine Bacteria (Auto) (None Seen) Urine Mucus (None Prsent) Salicylates (3.0-30) mg/dl Urine Opiates Screen (Neg) Ur Methadone, Qual (Neg) Acetaminophen (10-30) ug/ml Urine Barbiturates (Neg) Ur Phencyclidine (PCP) (Neg) U Amphetamines Confirm U Amphetamin/Meth Scrn (Neg) U Methamphetamin Confrm Urine MDEA MDMA (Ecstasy) Screen (Neg) MDMA Urine MDMA U OH-Alprazolam Confrm U Benzodiazepines Scrn (Neg) 7-Amino Clonazepam Ur Nordiazepam Confirm U OH-ethylflurazepam U Lorazepam Cnf GC/MS U Oxazepam Confm GC/MS Ur Temazepam Confirm U OH-Triazolam Confirm U OH-Midazolam Confirm Ur Cocaine Metabolite (Neg) U Marijuana (THC) Screen (Neg) Drug Screen Comment Ethyl Alcohol mg/dL (<10.0) mg/dl Adenovirus (PCR) (NotDetected) B. pertussis DNA (PCR) (NotDetected) B.parapertussis DNA PCR (NotDetected) C. pneumoniae DNA (PCR) (NotDetected) C.trachomatis RNA Pending Coronavirus OC43 (PCR) (NotDetected) Coronavirus HKU1 (PCR) (NotDetected) Coronavirus 229E (PCR) (NotDetected) SARS-CoV-2 (PCR) (NotDetected) Coronavirus NL63 (PCR) (NotDetected) Hepatitis A IgM Ab Hep Bs Antigen Hep Bs Ag Confirmation Hep B Core IgM Ab Hepatitis C Ab (EIA) HIV (1&2) Ag & Ab Conf Human Metapneumovir PCR (NotDetected) Influenza Type A (PCR) (NotDetected) Influenza Type B (PCR) (NotDetected) M. pneumoniae (PCR) (NotDetected) N.gonorrhoeae RNA Pending Parainfluenza 1 (PCR) (NotDetected) Parainfluenza 2 (PCR) (NotDetected) Parainfluenza 3 (PCR) (NotDetected) Parainfluenza 4 (PCR) (NotDetected) RSV (PCR) (NotDetected) Entero/Rhino (PCR) (NotDetected) Direct Antiglob Test (Negative) TUAN (IgG-AHG) (Negative) TUAN, Polyspecific (Negative) TUAN C3b, C3d 5 Min (Negative) 07/01/23 07/01/23 07/01/23 Range/Units 17:43 15:19 12:35 WBC (4.8-10.8) K/ul RBC (4.70-6.10) M/uL Hgb (14.0-18.0) g/dl Hct (42.0-52.0) % MCV (80.0-100.0) fL MCH (25.0-34.0) pg MCHC (32.0-36.0) g/dL RDW Std Deviation (36.4-46.3) fL RDW Coeff of Manny (11.5-14.5) % Plt Count (130-400) K/uL MPV (9.4-12.4) fL Immature Gran % (Auto) % Neut % (Auto) % Lymph % (Auto) % [place] % (Auto) % Eos % (Auto) % Baso % (Auto) % Neut # (Auto) (1.40-6.50) K/uL Lymph # (Auto) (1.20-3.40) K/uL [place] # (Auto) (0.11-0.59) K/uL Eos # (Auto) (0.00-0.50) K/uL Baso # (Auto) (0.00-0.20) K/uL Immature Gran # (Auto) (0.01-0.20) K/uL Peripher Smr Path Cons PT (9.0-12.0) Seconds INR (0.9-1.1) APTT (21-31) Seconds PTT Ratio Sodium (136-145) mmol/L Potassium (3.5-5.1) mmol/L Chloride (98-107) mmol/L Carbon Dioxide (21-32) mmol/L Anion Gap (3-11) BUN (6-23) mg/dl Creatinine (0.6-1.4) mg/dl Est Cr Clr Drug Dosing ml/min Est GFR ( Amer) ml/min Est GFR (Non-Af Amer) ml/min BUN/Creatinine Ratio (10-20) Glucose (70-99(Fasting)) mg/dl Calcium (8.6-10.3) mg/dl Total Bilirubin (0.2-1.0) mg/dl Direct Bilirubin (0-0.2) mg/dl AST (13-39) U/L ALT (7-52) U/L Alkaline Phosphatase (34-104) U/L Ammonia (18-72) umol/L Lactate Dehydrogenase (86-244) U/L Troponin I High Sens (0-20) pg/ml Total Protein (6.0-8.3) gm/dl Albumin (3.4-5.0) gm/dl Globulin (2.5-4.0) gm/dl Albumin/Globulin Ratio (0.9-2) Lipase (11-82) U/L TSH (0.300-4.500) uIu/ml Urine Color Urine Appearance (Clear) Urine pH (4.5-7.5) Ur Specific Wever (1.000-1.030) Urine Protein (Negative) Urine Glucose (UA) (Negative) Urine Ketones (Negative) Urine Blood (Negative) Urine Nitrite (Negative) Urine Bilirubin (Negative) Urine Urobilinogen (Negative) Ur Leukocyte Esterase (Negative) Urine WBC (Auto) (0-5) /hpf Urine RBC (Auto) (0-2) /hpf U Hyaline Cast (Auto) (0-2) /lpf U Epithel Cells (Auto) (0-2) /hpf Urine Bacteria (Auto) (None Seen) Urine Mucus (None Prsent) Salicylates (3.0-30) mg/dl Urine Opiates Screen (Neg) Ur Methadone, Qual (Neg) Acetaminophen (10-30) ug/ml Urine Barbiturates (Neg) Ur Phencyclidine (PCP) (Neg) U Amphetamines Confirm U Amphetamin/Meth Scrn (Neg) U Methamphetamin Confrm Urine MDEA MDMA (Ecstasy) Screen (Neg) MDMA Urine MDMA U OH-Alprazolam Confrm U Benzodiazepines Scrn (Neg) 7-Amino Clonazepam Ur Nordiazepam Confirm U OH-ethylflurazepam U Lorazepam Cnf GC/MS U Oxazepam Confm GC/MS Ur Temazepam Confirm U OH-Triazolam Confirm U OH-Midazolam Confirm Ur Cocaine Metabolite (Neg) U Marijuana (THC) Screen (Neg) Drug Screen Comment Ethyl Alcohol mg/dL (<10.0) mg/dl Adenovirus (PCR) Not Detected (NotDetected) B. pertussis DNA (PCR) Not Detected (NotDetected) B.parapertussis DNA PCR Not Detected (NotDetected) C. pneumoniae DNA (PCR) Not Detected (NotDetected) C.trachomatis RNA Coronavirus OC43 (PCR) Not Detected (NotDetected) Coronavirus HKU1 (PCR) Not Detected (NotDetected) Coronavirus 229E (PCR) Not Detected (NotDetected) SARS-CoV-2 (PCR) Not Detected (NotDetected) Coronavirus NL63 (PCR) Not Detected (NotDetected) Hepatitis A IgM Ab Hep Bs Antigen Hep Bs Ag Confirmation Hep B Core IgM Ab Hepatitis C Ab (EIA) HIV (1&2) Ag & Ab Conf Pending Human Metapneumovir PCR Not Detected (NotDetected) Influenza Type A (PCR) Not Detected (NotDetected) Influenza Type B (PCR) Not Detected (NotDetected) M. pneumoniae (PCR) Not Detected (NotDetected) N.gonorrhoeae RNA Parainfluenza 1 (PCR) Not Detected (NotDetected) Parainfluenza 2 (PCR) Not Detected (NotDetected) Parainfluenza 3 (PCR) Not Detected (NotDetected) Parainfluenza 4 (PCR) Not Detected (NotDetected) RSV (PCR) Not Detected (NotDetected) Entero/Rhino (PCR) Not Detected (NotDetected) Direct Antiglob Test Negative (Negative) TUAN (IgG-AHG) Neg (Negative) TUAN, Polyspecific Neg (Negative) TUAN C3b, C3d 5 Min Neg (Negative) 07/01/23 07/01/23 07/01/23 Range/Units 12:13 11:30 11:23 WBC (4.8-10.8) K/ul RBC (4.70-6.10) M/uL Hgb (14.0-18.0) g/dl Hct (42.0-52.0) % MCV (80.0-100.0) fL MCH (25.0-34.0) pg MCHC (32.0-36.0) g/dL RDW Std Deviation (36.4-46.3) fL RDW Coeff of Manny (11.5-14.5) % Plt Count (130-400) K/uL MPV (9.4-12.4) fL Immature Gran % (Auto) % Neut % (Auto) % Lymph % (Auto) % Trego % (Auto) % Eos % (Auto) % Baso % (Auto) % Neut # (Auto) (1.40-6.50) K/uL Lymph # (Auto) (1.20-3.40) K/uL Treg[place] # (Auto) (0.11-0.59) K/uL Eos # (Auto) (0.00-0.50) K/uL Baso # (Auto) (0.00-0.20) K/uL Immature Gran # (Auto) (0.01-0.20) K/uL Peripher Smr Path Cons PT (9.0-12.0) Seconds INR (0.9-1.1) APTT (21-31) Seconds PTT Ratio Sodium (136-145) mmol/L Potassium (3.5-5.1) mmol/L Chloride (98-107) mmol/L Carbon Dioxide (21-32) mmol/L Anion Gap (3-11) BUN (6-23) mg/dl Creatinine (0.6-1.4) mg/dl Est Cr Clr Drug Dosing ml/min Est GFR ( Amer) ml/min Est GFR (Non-Af Amer) ml/min BUN/Creatinine Ratio (10-20) Glucose (70-99(Fasting)) mg/dl Calcium (8.6-10.3) mg/dl Total Bilirubin (0.2-1.0) mg/dl Direct Bilirubin (0-0.2) mg/dl AST (13-39) U/L ALT (7-52) U/L Alkaline Phosphatase (34-104) U/L Ammonia 28.0 (18-72) umol/L Lactate Dehydrogenase (86-244) U/L Troponin I High Sens 5.4 (0-20) pg/ml Total Protein (6.0-8.3) gm/dl Albumin (3.4-5.0) gm/dl Globulin (2.5-4.0) gm/dl Albumin/Globulin Ratio (0.9-2) Lipase (11-82) U/L TSH (0.300-4.500) uIu/ml Urine Color [place] Urine Appearance Cloudy A (Clear) Urine pH 5.5 (4.5-7.5) Ur Specific Wever 1.034 H (1.000-1.030) Urine Protein 1+ H (Negative) Urine Glucose (UA) Negative (Negative) Urine Ketones 2+ H (Negative) Urine Blood Negative (Negative) Urine Nitrite Positive A (Negative) Urine Bilirubin 2+ H (Negative) Urine Urobilinogen Negative (Negative) Ur Leukocyte Esterase Trace H (Negative) Urine WBC (Auto) 0-5 (0-5) /hpf Urine RBC (Auto) 0-2 (0-2) /hpf U Hyaline Cast (Auto) 3-5 H (0-2) /lpf U Epithel Cells (Auto) 0-2 (0-2) /hpf Urine Bacteria (Auto) None Seen (None Seen) Urine Mucus Present A (None Prsent) Salicylates (3.0-30) mg/dl Urine Opiates Screen Neg (Neg) Ur Methadone, Qual Neg (Neg) Acetaminophen (10-30) ug/ml Urine Barbiturates Neg (Neg) Ur Phencyclidine (PCP) Neg (Neg) U Amphetamines Confirm Pending U Amphetamin/Meth Scrn Pos H (Neg) U Methamphetamin Confrm Pending Urine MDEA Pending MDMA (Ecstasy) Screen Pos H (Neg) MDMA Pending Urine MDMA Pending U OH-Alprazolam Confrm Pending U Benzodiazepines Scrn Pos H (Neg) 7-Amino Clonazepam Pending Ur Nordiazepam Confirm Pending U OH-ethylflurazepam Pending U Lorazepam Cnf GC/MS Pending U Oxazepam Confm GC/MS Pending Ur Temazepam Confirm Pending U OH-Triazolam Confirm Pending U OH-Midazolam Confirm Pending Ur Cocaine Metabolite Neg (Neg) U Marijuana (THC) Screen Neg (Neg) Drug Screen Comment Pending Ethyl Alcohol mg/dL < 10.0 (<10.0) mg/dl Adenovirus (PCR) (NotDetected) B. pertussis DNA (PCR) (NotDetected) B.parapertussis DNA PCR (NotDetected) C. pneumoniae DNA (PCR) (NotDetected) C.trachomatis RNA Coronavirus OC43 (PCR) (NotDetected) Coronavirus HKU1 (PCR) (NotDetected) Coronavirus 229E (PCR) (NotDetected) SARS-CoV-2 (PCR) (NotDetected) Coronavirus NL63 (PCR) (NotDetected) Hepatitis A IgM Ab Pending Hep Bs Antigen Pending Hep Bs Ag Confirmation Pending Hep B Core IgM Ab Pending Hepatitis C Ab (EIA) Pending HIV (1&2) Ag & Ab Conf Human Metapneumovir PCR (NotDetected) Influenza Type A (PCR) (NotDetected) Influenza Type B (PCR) (NotDetected) M. pneumoniae (PCR) (NotDetected) N.gonorrhoeae RNA Parainfluenza 1 (PCR) (NotDetected) Parainfluenza 2 (PCR) (NotDetected) Parainfluenza 3 (PCR) (NotDetected) Parainfluenza 4 (PCR) (NotDetected) RSV (PCR) (NotDetected) Entero/Rhino (PCR) (NotDetected) Direct Antiglob Test (Negative) TUAN (IgG-AHG) (Negative) TUAN, Polyspecific (Negative) TUAN C3b, C3d 5 Min (Negative) 07/01/23 Range/Units 11:20 WBC 8.82 (4.8-10.8) K/ul RBC 5.15 (4.70-6.10) M/uL Hgb 15.4 (14.0-18.0) g/dl Hct 43.3 (42.0-52.0) % MCV 84.1 (80.0-100.0) fL MCH 29.9 (25.0-34.0) pg MCHC 35.6 (32.0-36.0) g/dL RDW Std Deviation 37.8 (36.4-46.3) fL RDW Coeff of Manny 12.4 (11.5-14.5) % Plt Count 339 (130-400) K/uL MPV 9.1 L (9.4-12.4) fL Immature Gran % (Auto) 0.3 % Neut % (Auto) 64.0 % Lymph % (Auto) 21.3 % [place] % (Auto) 12.4 % Eos % (Auto) 1.0 % Baso % (Auto) 1.0 % Neut # (Auto) 5.64 (1.40-6.50) K/uL Lymph # (Auto) 1.88 (1.20-3.40) K/uL Treg[place] # (Auto) 1.09 H (0.11-0.59) K/uL Eos # (Auto) 0.09 (0.00-0.50) K/uL Baso # (Auto) 0.09 (0.00-0.20) K/uL Immature Gran # (Auto) 0.03 (0.01-0.20) K/uL Peripher Smr Path Cons PT 12.0 (9.0-12.0) Seconds INR 1.1 (0.9-1.1) APTT 28 (21-31) Seconds PTT Ratio 1.0 Sodium 138 (136-145) mmol/L Potassium 3.4 L (3.5-5.1) mmol/L Chloride 102 (98-107) mmol/L Carbon Dioxide 27 (21-32) mmol/L Anion Gap 9 (3-11) BUN 9 (6-23) mg/dl Creatinine 1.00 (0.6-1.4) mg/dl Est Cr Clr Drug Dosing 98.5 ml/min Est GFR ( Amer) 122.4 ml/min Est GFR (Non-Af Amer) 105.6 ml/min BUN/Creatinine Ratio 9.0 L (10-20) Glucose 92 (70-99(Fasting)) mg/dl Calcium 9.7 (8.6-10.3) mg/dl Total Bilirubin 5.2 H (0.2-1.0) mg/dl Direct Bilirubin 0.4 H (0-0.2) mg/dl AST 15 (13-39) U/L ALT 11 (7-52) U/L Alkaline Phosphatase 37 (34-104) U/L Ammonia (18-72) umol/L Lactate Dehydrogenase 184 (86-244) U/L Troponin I High Sens (0-20) pg/ml Total Protein 7.4 (6.0-8.3) gm/dl Albumin 4.9 (3.4-5.0) gm/dl Globulin (2.5-4.0) gm/dl Albumin/Globulin Ratio (0.9-2) Lipase 14 (11-82) U/L TSH 0.466 (0.300-4.500) uIu/ml Urine Color Urine Appearance (Clear) Urine pH (4.5-7.5) Ur Specific Wever (1.000-1.030) Urine Protein (Negative) Urine Glucose (UA) (Negative) Urine Ketones (Negative) Urine Blood (Negative) Urine Nitrite (Negative) Urine Bilirubin (Negative) Urine Urobilinogen (Negative) Ur Leukocyte Esterase (Negative) Urine WBC (Auto) (0-5) /hpf Urine RBC (Auto) (0-2) /hpf U Hyaline Cast (Auto) (0-2) /lpf U Epithel Cells (Auto) (0-2) /hpf Urine Bacteria (Auto) (None Seen) Urine Mucus (None Prsent) Salicylates < 3.0 L (3.0-30) mg/dl Urine Opiates Screen (Neg) Ur Methadone, Qual (Neg) Acetaminophen < 3 L (10-30) ug/ml Urine Barbiturates (Neg) Ur Phencyclidine (PCP) (Neg) U Amphetamines Confirm U Amphetamin/Meth Scrn (Neg) U Methamphetamin Confrm Urine MDEA MDMA (Ecstasy) Screen (Neg) MDMA Urine MDMA U OH-Alprazolam Confrm U Benzodiazepines Scrn (Neg) 7-Amino Clonazepam Ur Nordiazepam Confirm U OH-ethylflurazepam U Lorazepam Cnf GC/MS U Oxazepam Confm GC/MS Ur Temazepam Confirm U OH-Triazolam Confirm U OH-Midazolam Confirm Ur Cocaine Metabolite (Neg) U Marijuana (THC) Screen (Neg) Drug Screen Comment Ethyl Alcohol mg/dL (<10.0) mg/dl Adenovirus (PCR) (NotDetected) B. pertussis DNA (PCR) (NotDetected) B.parapertussis DNA PCR (NotDetected) C. pneumoniae DNA (PCR) (NotDetected) C.trachomatis RNA Coronavirus OC43 (PCR) (NotDetected) Coronavirus HKU1 (PCR) (NotDetected) Coronavirus 229E (PCR) (NotDetected) SARS-CoV-2 (PCR) (NotDetected) Coronavirus NL63 (PCR) (NotDetected) Hepatitis A IgM Ab Hep Bs Antigen Hep Bs Ag Confirmation Hep B Core IgM Ab Hepatitis C Ab (EIA) HIV (1&2) Ag & Ab Conf Human Metapneumovir PCR (NotDetected) Influenza Type A (PCR) (NotDetected) Influenza Type B (PCR) (NotDetected) M. pneumoniae (PCR) (NotDetected) N.gonorrhoeae RNA Parainfluenza 1 (PCR) (NotDetected) Parainfluenza 2 (PCR) (NotDetected) Parainfluenza 3 (PCR) (NotDetected) Parainfluenza 4 (PCR) (NotDetected) RSV (PCR) (NotDetected) Entero/Rhino (PCR) (NotDetected) Direct Antiglob Test (Negative) TUAN (IgG-AHG) (Negative) TUAN, Polyspecific (Negative) TUAN C3b, C3d 5 Min (Negative) Resident Activity Tracking Resident Involvement: Resident Care Provided Care Provided: Adult Hospital Medicine
[2023-07-02] MEDS: POLYETHYLENE (MIRALAX) 17 GM PACK PO SCH (08:51)
[2023-07-02 09:58] LABS: HBSAG NON-REACTIVE (NON-REACTIVE); Hepatitis A Antibody IgM NON-REACTIVE (NON-REACTIVE); Hepatitis B Core Antibody IgM NON-REACTIVE (NON-REACTIVE)
[2023-07-02 10:19] LABS: Adenovirus F 40/41 PCR Not Detected (NotDetected); Astrovirus PCR Not Detected (NotDetected); Campylobacter PCR Not Detected (NotDetected); Cryptosporidium PCR Not Detected (NotDetected); Cyclospora cayetanensis PCR Not Detected (NotDetected); Entamoeba histolytica PCR Not Detected (NotDetected); Enteroaggregative E.coli(EAEC) Not Detected (NotDetected); Enteropathogenic E.coli (EPEC) Not Detected (NotDetected); Enterotoxigenic E.coli (ETEC) Not Detected (NotDetected); Giardia lamblia PCR Not Detected (NotDetected); Norovirus GI/GII PCR Not Detected (NotDetected); Plesiomonas shigelloides PCR Not Detected (NotDetected); Rotavirus A PCR Not Detected (NotDetected); Salmonella PCR Not Detected (NotDetected); Sapovirus PCR Not Detected (NotDetected); Shiga-like Toxin E.coli (STEC) Not Detected (NotDetected); Shigella/Enteroinvasive E.coli Not Detected (NotDetected); Vibrio cholerae PCR Not Detected (NotDetected); Vibrio species PCR Not Detected (NotDetected); Yersinia enterocolitica PCR Not Detected (NotDetected)
--- NOTE | 2023-07-02 11:31 | Electrocardiogram Report ---
Test Reason : Blood Pressure : / mmHG Vent. Rate : 069 BPM Atrial Rate : 069 BPM P-R Int : 128 ms QRS Dur : 086 ms QT Int : 374 ms P-R-T Axes : 056 085 083 degrees QTc Int : 400 ms Normal sinus rhythm with sinus arrhythmia ST elevation, consider early repolarization Borderline ECG No previous ECGs available Confirmed by Dixon Diaz ([id number]) on 07/02/2023 11:30:46 AM Referred By: NO PCP Confirmed By:Dixon Diaz
[2023-07-02 12:35] LABS: Chlam trach RNA(Genit,Ureth,Ur Not Detected (NotDetected); GC(Neis gon)RNA(Genit,Ureth,Ur Not Detected (NotDetected)
--- NOTE | 2023-07-02 12:50 | Discharge Summary ---
Date of Service July 02, 2023 Admission HPI Per Admitting Provider Kole is a 23-year-old male Noticed his eyes were yellow yesterday. Was seen at [facility] yesterday and had a high bilirubin level. Was awaiting transfer to [place] as ultrasound was not available; however, transfer was delayed. As it took several hours with no update, signed out AMA and came to [facility] [place] this morning for further care. Jeremías reports he did have bilirubin checked a year or two ago. After a breakup had an episode of binge drinking for ~1-2 months. Did have a slightly high level, but not that hig No recent illnesses in the last month Did have binge dinrking 2 years ago around 2years ago. Recently has only been drinking about once every 2 weeks, has 7-8 in a sitting when he does drink but has only had alcohol twice a month but hasn't gone out htis past so hasn't drank in around 1-2 months No medication changes. Has been on clonopin 0.5mg BID, adderal 20mg AM, 10mg PM, propanolol 10mg PRN for shakes is he is trying to not take the clonopin and for agoraphobia, and trazodone 50mg HS PRN. DId take clonopin and propanolol this AM. Adderal was increased from 10/10 to 20/10 about one month ago. Had been on 30mg BID twice daily in the past. No tylenol use No recent antibiotic use Urine has been very dark/red. No bleeding Hasa bruise on his L lateral thigh which he noticed one week ago. Bowel movements last few weeks changed. Has alternated constipation and diarrhea. He has abdominal pain every night, and chugs a large amount of water which is the only thing that seems to help. +polyuria with water, no dysuria. No bloody or black bowel movements. BMs have been 'much darker brown, not black but also not regular brown'. No marroon or black BMs. 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 Does have a family history of jaundice in childhood in family members that patients mother thinks was due to hepatisis, also with an uncle that turned yellow but not sure why, and two cousins had severe jaundice. U-Tox: Amphetamine/meth screen positive in the setting of prescribed Adderall. MDMA and urine benzo screen positive. No leukocytosis Although last for comparison was 16.7 2018 had a bili of 2.0 with no transaminitis. Hyperbilirubinemia 5.2, Direct 0.4. LastBilirubin was checked in 2018, at that time was elevated 2.0 with no direct/indirect measurement available Principal Diagnosis unconjugated hyperbilirubinemia Discharge Exam Constitutional: Well-developed, well-nourished patient, in no acute distress, pleasant and normal affect, intact memory. Vitals as above. HEENT: No scleral injection or discharge. Moist mucous membranes. Neck: Supple without lymphadenopathy or thyromegaly. Trachea midline. Lungs: Clear to auscultation bilaterally with good effort. No wheezes/rales/rhonchi. Cardiac: Regular rate and rhythm. No murmurs. No LE extremity edema. 2+ distal peripheral pulses. Abdomen: Soft, nontender, and nondistended.No guarding. No hepatosplenomegaly. MSK: No cyanosis or clubbing. Extremities motor strength 5/5. Skin: Warm, dry. +small linear bruise on lateral upper calf Neurologic: no focal deficits Discharge Data Allergies Allergy/AdvReac Type Severity Reaction Status Date / Time Penicillins Allergy Mild Unknown Unverified 06/08/22 13:29 amoxicillin AdvReac Unknown Unverified 06/08/22 13:29 Consultations 07/01/23 13:26 ED Decision to Admit Stat Ordered Studies Laboratory Results WBC 6.37 K/ul (4.8-10.8) 07/02/23 06:24 RBC 4.95 M/uL (4.70-6.10) 07/02/23 06:24 Hgb 14.8 g/dl (14.0-18.0) 07/02/23 06:24 Hct 41.3 % (42.0-52.0) L 07/02/23 06:24 MCV 83.4 fL (80.0-100.0) 07/02/23 06:24 MCH 29.9 pg (25.0-34.0) 07/02/23 06:24 MCHC 35.8 g/dL (32.0-36.0) 07/02/23 06:24 RDW Std Deviation 37.5 fL (36.4-46.3) 07/02/23 06: RDW Coeff of Manny 12.5 % (11.5-14.5) 07/02/23 06:24 Plt Count 291 K/uL (130-400) 07/02/23 06:24 MPV 9.0 fL (9.4-12.4) L 07/02/23 06:24 Immature Gran % (Auto) 0.2 % 07/02/23 06:24 Neut % (Auto) 51.4 % 07/02/23 06:24 Lymph % (Auto) 32.8 % 07/02/23 06:24 Evangeline % (Auto) 11.8 % 07/02/23 06:24 Eos % (Auto) 2.7 % 07/02/23 06:24 Baso % (Auto) 1.1 % 07/02/23 06:24 Neut # (Auto) 3.28 K/uL (1.40-6.50) 07/02/23 06:24 Lymph # (Auto) 2.09 K/uL (1.20-3.40) 07/02/23 06:24 Evangeline # (Auto) 0.75 K/uL (0.11-0.59) H 07/02/23 06:24 Eos # (Auto) 0.17 K/uL (0.00-0.50) 07/02/23 06:24 Baso # (Auto) 0.07 K/uL (0.00-0.20) 07/02/23 06:24 Immature Gran # (Auto) 0.01 K/uL (0.01-0.20) 07/02/23 06:24 Peripher Smr Path Cons 07/01/23 11:20 PT 12.0 Seconds (9.0-12.0) 07/01/23 11:20 INR 1.1 (0.9-1.1) 07/01/23 11:20 APTT 28 Seconds (21-31) 07/01/23 11:20 PTT Ratio 1.0 07/01/23 11:20 Sodium 137 mmol/L (136-145) 07/02/23 06:24 Potassium 3.7 mmol/L (3.5-5.1) 07/02/23 06:24 Chloride 101 mmol/L (98-107) 07/02/23 06:24 Carbon Dioxide 25 mmol/L (21-32) 07/02/23 06:24 Anion Gap 11 (3-11) 07/02/23 06:24 BUN 7 mg/dl (6-23) 07/02/23 06:24 Creatinine 0.84 mg/dl (0.6-1.4) 07/02/23 06:24 Est Cr Clr Drug Dosing 117.2 ml/min 07/02/23 06:24 Est GFR ( Amer) 143.0 ml/min 07/02/23 06:24 Est GFR (Non-Af Amer) 123.4 ml/min 07/02/23 06:24 BUN/Creatinine Ratio 8.3 (10-20) L 07/02/23 06:24 Glucose 76 mg/dl (70-99(Fasting)) 07/02/23 06:24 Calcium 9.5 mg/dl (8.6-10.3) 07/02/23 06:24 Total Bilirubin 5.5 mg/dl (0.2-1.0) H 07/02/23 06:24 Direct Bilirubin 0.4 mg/dl (0-0.2) H 07/01/23 11:20 AST 12 U/L (13-39) L 07/02/23 06:24 ALT 9 U/L (7-52) 07/02/23 06:24 Alkaline Phosphatase 35 U/L (34-104) 07/02/23 06:24 Ammonia 28.0 umol/L (18-72) 07/01/23 11:30 Lactate Dehydrogenase 184 U/L (86-244) 07/01/23 11:20 Troponin I High Sens 5.4 pg/ml (0-20) 07/01/23 12:13 Total Protein 6.9 gm/dl (6.0-8.3) 07/02/23 06:24 Albumin 4.6 gm/dl (3.4-5.0) 07/02/23 06:24 Globulin 2.3 gm/dl (2.5-4.0) L 07/02/23 06:24 Albumin/Globulin Ratio 2.0 (0.9-2) 07/02/23 06:24 Lipase 14 U/L (11-82) 07/01/23 11:20 TSH 0.466 uIu/ml (0.300-4.500) 07/01/23 11:20 Urine Color Yellow 07/01/23 21:50 Urine Appearance Clear (Clear) 07/01/23 21:50 Urine pH 7.0 (4.5-7.5) 07/01/23 21:50 Ur Specific Schwertner 1.029 (1.000-1.030) 07/01/23 21:50 Urine Protein Negative (Negative) 07/01/23 21:50 Urine Glucose (UA) Negative (Negative) 07/01/23 21:50 Urine Ketones 3+ (Negative) H 07/01/23 21:50 Urine Blood Negative (Negative) 07/01/23 21:50 Urine Nitrite Negative (Negative) 07/01/23 21:50 Urine Bilirubin Negative (Negative) 07/01/23 21:50 Urine Urobilinogen Negative (Negative) 07/01/23 21:50 Ur Leukocyte Esterase Negative (Negative) 07/01/23 21:50 Urine WBC (Auto) 0-5 /hpf (0-5) 07/01/23 11:23 Urine RBC (Auto) 0-2 /hpf (0-2) 07/01/23 11:23 U Hyaline Cast (Auto) 3-5 /lpf (0-2) H 07/01/23 11:23 U Epithel Cells (Auto) 0-2 /hpf (0-2) 07/01/23 11:23 Urine Bacteria (Auto) None Seen (None Seen) 07/01/23 11:23 Urine Mucus Present (None Prsent) A 07/01/23 11:23 Stl C. cayetanensis PCR Not Detected (NotDetected) 07/02/23 08:45 Stool Rotavirus A PCR Not Detected (NotDetected) 07/02/23 08:45 Stl Adenov F 40/41 PCR Not Detected (NotDetected) 07/02/23 08:45 Stool Astrovirus (PCR) Not Detected (NotDetected) 07/02/23 08:45 Stool Campylobacter PCR Not Detected (NotDetected) 07/02/23 08:45 Stool Cryptosporidium PCR Not Detected (NotDetected) 07/02/23 08:45 Stl E.coli Shiga Tox PCR Not Detected (NotDetected) 07/02/23 08:45 Stl Enterotoxigenic E PCR Not Detected (NotDetected) 07/02/23 08:45 Stool EPEC (PCR) Not Detected (NotDetected) 07/02/23 08:45 Stool EAEC (PCR) Not Detected (NotDetected) 07/02/23 08:45 Stl E. histolytica PCR Not Detected (NotDetected) 07/02/23 08:45 Stool Giardia Lamblia PCR Not Detected (NotDetected) 07/02/23 08:45 Stool Salmonella PCR Not Detected (NotDetected) 07/02/23 08:45 Stool Sapovirus (PCR) Not Detected (NotDetected) 07/02/23 08:45 Stl P. shigelloides PCR Not Detected (NotDetected) 07/02/23 08:45 Stl Shigella/EIEC PCR Not Detected (NotDetected) 07/02/23 08:45 St Y.enterocolitica PCR Not Detected (NotDetected) 07/02/23 08:45 Stool Vibrio (PCR) Not Detected (NotDetected) 07/02/23 08:45 Stl Vibrio cholerae PCR Not Detected (NotDetected) 07/02/23 08:45 Stl Norovirus GI/GII PCR Not Detected (NotDetected) 07/02/23 08:45 Salicylates < 3.0 mg/dl (3.0-30) L 07/01/23 11:20 Urine Opiates Screen Neg (Neg) 07/01/23 11:23 Ur Methadone, Qual Neg (Neg) 07/01/23 11:23 Acetaminophen < 3 ug/ml (10-30) L 07/01/23 11:20 Urine Barbiturates Neg (Neg) 07/01/23 11:23 Ur Phencyclidine (PCP) Neg (Neg) 07/01/23 11:23 U Amphetamin/Meth Scrn Pos (Neg) H 07/01/23 11:23 MDMA (Ecstasy) Screen Pos (Neg) H 07/01/23 11:23 U Benzodiazepines Scrn Pos (Neg) H 07/01/23 11:23 Ur Cocaine Metabolite Neg (Neg) 07/01/23 11:23 U Marijuana (THC) Screen Neg (Neg) 07/01/23 11:23 Ethyl Alcohol mg/dL < 10.0 mg/dl (<10.0) 07/01/23 12:13 Adenovirus (PCR) Not Detected (NotDetected) 07/01/23 12:35 B. pertussis DNA (PCR) Not Detected (NotDetected) 07/01/23 12:35 B.parapertussis DNA PCR Not Detected (NotDetected) 07/01/23 12:35 C. pneumoniae DNA (PCR) Not Detected (NotDetected) 07/01/23 12:35 C.trachomatis RNA Not Detected (NotDetected) 07/01/23 21:51 Coronavirus OC43 (PCR) Not Detected (NotDetected) 07/01/23 12:35 Coronavirus HKU1 (PCR) Not Detected (NotDetected) 07/01/23 12:35 Coronavirus 229E (PCR) Not Detected (NotDetected) 07/01/23 12:35 SARS-CoV-2 (PCR) Not Detected (NotDetected) 07/01/23 12:35 Coronavirus NL63 (PCR) Not Detected (NotDetected) 07/01/23 12:35 Hepatitis A IgM Ab NON-REACTIVE (NON-REACTIVE) 07/01/23 12:13 Hep Bs Antigen NON-REACTIVE (NON-REACTIVE) 07/01/23 12:13 Hep Bs Ag Confirmation TNP 07/01/23 12:13 Hep B Core IgM Ab NON-REACTIVE (NON-REACTIVE) 07/01/23 12:13 Hepatitis C Ab (EIA) NON-REACTIVE (NON-REACTIVE) 07/01/23 12:13 Human Metapneumovir PCR Not Detected (NotDetected) 07/01/23 12:35 Influenza Type A (PCR) Not Detected (NotDetected) 07/01/23 12:35 Influenza Type B (PCR) Not Detected (NotDetected) 07/01/23 12:35 M. pneumoniae (PCR) Not Detected (NotDetected) 07/01/23 12:35 N.gonorrhoeae RNA Not Detected (NotDetected) 07/01/23 21:51 Parainfluenza 1 (PCR) Not Detected (NotDetected) 07/01/23 12:35 Parainfluenza 2 (PCR) Not Detected (NotDetected) 07/01/23 12:35 Parainfluenza 3 (PCR) Not Detected (NotDetected) 07/01/23 12:35 Parainfluenza 4 (PCR) Not Detected (NotDetected) 07/01/23 12:35 RSV (PCR) Not Detected (NotDetected) 07/01/23 12:35 Entero/Rhino (PCR) Not Detected (NotDetected) 07/01/23 12:35 Direct Antiglob Test Negative (Negative) 07/01/23 15:19 TUAN (IgG-AHG) Neg (Negative) 07/01/23 15:19 TUAN, Polyspecific Neg (Negative) 07/01/23 15:19 TUAN C3b, C3d 5 Min Neg (Negative) 07/01/23 15:19 Impressions Chest/Abdomen X-ray 07/01/23 11:13 XR abdomen 2V w PA chest CLINICAL HISTORY: epigastric pain TECHNIQUE: 2 views of the abdomen were obtained. A single view of the chest was obtained. Comparison: Comparison is made to chest radiograph 01/08/2018 FINDINGS: No lines and tubes are seen. The cardiomediastinal silhouette is normal. The lungs are clear. No evidence of pleural effusion or pneumothorax. The osseous structures are grossly unremarkable. The bowel gas pattern is nonobstructive. Small stool burden is seen. IMPRESSION: Nonobstructive bowel gas pattern. ACT 112: Negative or not required by law. Electronically signed by: Nick Ramachandran M.D. 07/01/2023 12:49 PM Gallbladder Ultrasound 07/01/23 11:13 ABDOMINAL ULTRASOUND, RIGHT UPPER QUADRANT HISTORY: Acute right upper quadrant abdominal pain jaundice epigastric pain. COMPARISON: CT 02/15/2011 FINDINGS: Pancreas: The pancreas is mostly obscured by bowel gas. Liver: Unremarkable. Gallbladder: No gallbladder wall thickening. No gallstones. CBD: 0.3 cm. Right kidney: No hydronephrosis. IMPRESSION: No significant abnormality identified within the right upper quadrant. ACT 112: Negative or not required by law. Electronically signed by: Patrick An M.D. 07/01/2023 12:29 PM Abdomen/Pelvis CT 07/01/23 14:[address] WITH IV CONTRAST CT DOSE: 451.19 mGy.cm HISTORY: Acute generalized abdominal pain abdominal pain, GI illness TECHNIQUE: Multiaxial CT images of the abdomen and pelvis were performed following the IV administration of 92 cc of Optiray, A dose lowering technique was utilized adhering to the principles of ALARA. COMPARISON STUDY: 02/15/2011 FINDINGS: Clear lung bases. No free air. The study is mildly degraded by respiratory motion artifact. Unremarkable spleen, pancreas, gallbladder and adrenal glands. Liver is within normal limits. Patency of the hepatic and portal veins. Kidneys are within normal limits. No hydronephrosis. While nonspecific urinary bladder wall thickening. Heterogeneous appearance of the prostate and seminal vesicles is nonspecific. Trace free pelvic fluid. Aorta and IVC are unremarkable. No lymphadenopathy. Subcentimeter PA calcifications noted on image 341 series 3. There is no bowel obstruction or bowel wall thickening. Normal appendix. Unremarkable soft tissues. Mild lumbar levoscoliosis. No acute fracture. IMPRESSION: 1. No bowel obstruction or bowel wall thickening. 2. Normal appendix. 3. Trace nonspecific free pelvic fluid. ACT 112: Negative or not required by law. The above report was generated using voice recognition software. It may contain grammatical, syntax or spelling errors. Electronically signed by: Patrick An M.D. 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 Bili can be elevated >4 with physiological events causing jaundice. LFTs normal. No signs for hemolysis at this time. Imaging unremarkable. Testing thus far including hep panel, biofire, stool studies have been negative. Further testing still pending, however at this time he is safe for discharge given he is HDS and asymptomatic. Bili should improve with time. He should have close f/u with PCP to discuss further workup. May want to get genetic testing [id number] done to confirm. #Early repolarization -seen on EKG, asymptomatic -echo normal #Sexually active -Patient requests routine STD screening. HIV/G/C - negative (2) EKG, abnormal: (3) Abdominal pain: (4) Panic attacks: (5) ADHD (attention deficit hyperactivity disorder), inattentive type: (6) Hematuria: Total Time Total Time Spent Total Time Spent (In Minutes): <30 Discharge Plan Discharge Items Patient Disposition: Home - Self-Care Reason For Visit: HYPERBILIRUBINEMIA Discharge Diagnosis: Unconjugated Hyperbilirubinemia Activity: Per Instructions section Non-emergency contact: Primary Care Provider Call non-emergency contact if: you have any medication questions, your symptoms worsen and you have a fever Follow-up/Referrals: Torito Rockwell DO [Primary Care Provider] - Geovanny Springer DO [Resident] - Diet: Regular Addtl Attending Provider Instructions: You were admitted to the hospital for further evaluation due to jaundice and elevated bilirubin on labs. Thus far, with some tests still pending, your labs/imaging have been unremarkable. 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 However cannot be confirmed without genetic testing which can be discussed with your PCP. It's likely that you always have an elevated bilirubin however this time was markedly elevated due to some stressor (i.e stress, illness, etc) causing you to have yellowing of your eyes and discoloration in your urine. These should improve with time. Dothan is a benign condition that should not have any continuous churn buttermaker complications. You should definitely be seen by your primary care physician early next week who can repeat labs to make sure the bilirubin is coming down. If at any point you develop fever, severe fatigue/weakness, new severe abdominal pain different from your normal you should speak to a medical professional immediately for further instruction or present back to the ED. Pending Studies at Discharge: Yes Stand-Alone Forms: My [facility] [place], Smoking Cessation Medications and DC Order Prescriptions: Continued dextroamphetamine-amphetamine 10 mg tablet 10 mg PO .AFTERNOON PRN (Reason: Other) dextroamphetamine-amphetamine 20 mg tablet 20 mg PO QAM trazodone 50 mg tablet 50 mg PO HS PRN (Reason: Sleep) clonazepam 0.5 mg tablet 0.5 mg PO BID PRN (Reason: Other) propranolol 10 mg tablet 10 mg PO BID hydroxyzine HCl 25 mg tablet 25 mg PO BID PRN (Reason: Other) Discharge Orders: Discharge Order (Routine); Ordered 07/02/23 Ordered By: Darryl White/Other Patient Handouts: Direct Bilirubin Admission Data Admit Date/Time: 07/01/23 15:00 Attending Provider: Alphonse Hobson Admit Provider: Fede Meyer Primary Care Provider: Torito Rockwell Other Providers: Fede Meyer Other Interventions: Discharge Summary Assessment (RN) Last Done: 07/02/23 13:04 Supervising Physician Co-Signing Physician Notes I personally examined the patient and verified all [place] points of history and exam, discussed case, and agree with decision making with Dr Hilliard Feels well. Has nocturnal upper abdominal pain, but this has been going on for at least a year, is intermittent, only at night, and is totally unchanged. No new abdominal pain no nausea vomiting. No fevers chills or sweats. No pallor, weakness, fatigue. Really only came because his eyes were yellow, and then lab work showed an elevated bilirubin. Extensive discussion with patient, and mom who was on speaker phone. Answered all questions to the best my ability and to their satisfaction. Vitals noted, in general he is awake and alert pleasant no distress. HEENT normocephalic atraumatic mucous membranes moist. He does have notable scleral icterus. Breathing unlabored no accessory muscle use good effort. Skin shows no rashes no pallor I do not really think he has dermal icterus just scleral. No focal neurodeficits. Jaundice --- by exclusion, seems most likely he has Gilbert's and had some degree of metabolic stressor precipitating a rise in bilirubin. This is supported by bilirubin years ago that was 2.0, as well as ruling out a significant amount of other pathology (see below)safe/stable for home, outpatient labs early next week, outpatient follow-up late next week or early the following. return to hospital if new abdominal pain, nausea vomiting, fevers, or pallor/weakness. ---> Acute hepatitis (viral or alcoholic) is essentially ruled out by his reassuring history, lack of transaminitis, and negative viral titers. We even discussed the possibility of having had a viral hepatitis few weeks ago and we are simply catching a residual hyperbilirubinemia, but this also seems unlikely given his lack of symptoms, and negative hepatitis panel ---> cirrhotic elevation is essentially ruled out by no cirrhosis on imaging, bilirubin being the only marker that is up, normal albumin and INR, no overt risks for cirrhosis, and his young age ---> obstructive elevation (either stone or malignancy) is essentially ruled out by his bilirubin being predominantly unconjugated, no obstruction seen on ultrasound or CT, no malignancy seen on ultrasound or CT, his alk phos being normal, his transaminases being normal, and his lack of new symptoms ---> hemolysis seems extremely unlikely due to his lack of anemia (hemoglobin going down from admission to today is well within the range of "lab error" and also could be iatrogenic from lab draws to a degree), his normal peripheral smear, his normal LDH, and his lack of any clear inciting event or symptom complex that would fit with a hemolytic anemia process. We did discuss that a hypothetical, exceedingly unlikely, but remotely possible scenario could be an extremely mild hemolytic process, but this seems to be more of a hypothetical putting together a story than anything that seems clinically real --- ongoing outpatient follow-up, anticipate in the coming days/weeks his bilirubin should stay to plateau and then resolved back to what appears to be his baseline of about 2; if it does not and no other etiologies declare themselves, then we discussed that referral to hepatology could be of benefit. Otherwise as above Resident Activity Tracking Resident Involvement: Resident Care Provided Care Provided: Adult [facility]
--- NOTE | 2023-07-02 15:46 | Billing Data ---
Date of Service July 02, 2023 Coding Level of Care Code 00349 IN/OBS DISCH 30 MIN/LESS
--- NOTE | 2023-07-03 20:46 | Electrocardiogram Report ---
Test Reason : Blood Pressure : / mmHG Vent. Rate : 063 BPM Atrial Rate : 063 BPM P-R Int : 126 ms QRS Dur : 090 ms QT Int : 398 ms P-R-T Axes : 038 075 077 degrees QTc Int : 407 ms Normal sinus rhythm with sinus arrhythmia Early repolarization Normal ECG When compared with ECG of 01-JUL-2023 11:28, No significant change was found Confirmed by Luis Miguel Talavera ([id number]) on 07/03/2023 8:46:36 PM Referred By: NO PCP Confirmed By:Luis Miguel Talavera
[2023-07-07 13:48] LABS: Babesia microti DNA Not Detected (Not Detected)
[2023-07-08 03:42] LABS: 7-Aminoclonaz, Confirm 1390 ng/mL (<25); Amphetamine Urine, Confirm 10175 ng/mL (<250); Hydro-Alp Ur, GC/MS NEGATIVE ng/mL (<25); Hydroxyethylflurazepam, Conf NEGATIVE ng/mL (<50); Hydroxymidazolam Ur, GC/MS NEGATIVE ng/mL (<50); Hydroxytriazolam NEGATIVE ng/mL (<50); Lorazepam, Ur GC/MS NEGATIVE ng/mL (<50); MDA negative; MDEA negative; MDMA (Ecstasy) Urine, Confirm negative; Nordiazepam, Confirm NEGATIVE ng/mL (<50); Oxazepam Ur, GC/MS NEGATIVE ng/mL (<50); Temazepam, Confirm NEGATIVE ng/mL (<50)
== END 2023-07-02 14:15 | disposition home or self-care (01) | DRG 443 ==
LOC: ED 10:37 → 3W 15:00 → SUATTDRO 15:00 → INTOOBSV 15:00 → 3W 17:11